=== PATIENT | female | born 1970 | race Caucasian/White ===

== ENCOUNTER 2020-07-14 16:56 | Emergency (ER) | payer OTHER ==
[~2020-07-14] VITALS: Ht 152.4 cm; Wt 83.9 kg
[~2020-07-14 16:56] MED LIST: ATENOLOL50 MG; CIPRO500 MG PO; COLACE100 MG PO; FLAGYL500MG PO; INTESTINEX1 CA1 PO; Neurontin PO; PRILOSEC OTC20 MG PO; SYNTHROID50 MCG; SYNTHROID50 MCG PO; TENORMIN50 M1 PO; Tenormin 50MG TAB PO; ULTRACET PO
[2020-07-14] MEDS ORDERED: NEURONTIN300 MG (17:06)
[2020-07-14] MEDS ORDERED: TOPROL XL25 M1 (17:06)
[2020-07-14] MEDS ORDERED: SINGULAIR10 MG (17:07)
[2020-07-14] MEDS ORDERED: DICLOFENAC POTA50 MG (17:07)
[2020-07-14] MEDS ORDERED: ACTOS15 MG (17:07)
== END 2020-07-14 20:56 | disposition home or self-care (01) ==
LOC: ER 16:56
DX: M25.461 Effusion, right knee (principal); M17.11 Unilateral primary osteoarthritis, right knee; S83.8X1S Sprain of other specified parts of right knee, sequela; X58.XXXS Exposure to other specified factors, sequela

== ENCOUNTER 2020-08-25 05:56 | Day surgery (SDC) | payer OTHER ==
[~2020-08-25 05:56] MED LIST changes: +ACTOS15 MG; +ALENDRONATE SOD35 MG PO; +COZAAR100 MG PO; +DICLOFENAC POTA50 MG; +LEVO-T100 MCG PO; +NEURONTIN300 MG; +SINGULAIR10 MG; +TOPROL XL25 M1
== END 2020-08-25 16:00 | disposition home or self-care (01) ==
LOC: CIR.AMB 05:56
PROVIDERS: ATTEND Orthopaedic Surgery
DX: M23.321 Other meniscus derangements, posterior horn of medial meniscus, right knee (principal); M23.341 Other meniscus derangements, anterior horn of lateral meniscus, right knee; M65.861 Other synovitis and tenosynovitis, right lower leg; M12.261 Villonodular synovitis (pigmented), right knee; Z20.822 Contact with and (suspected) exposure to COVID-19

== ENCOUNTER 2021-07-17 09:21 | Outpatient (CLI) | payer OTHER | END 2021-07-17 09:37 | disposition home or self-care (01) | LOC: RAD 09:21 | PROVIDERS: ATTEND Orthopaedic Surgery | DX: M79.672 Pain in left foot (principal) ==

== ENCOUNTER 2021-07-17 10:42 | Outpatient (CLI) | payer OTHER | END 2021-07-17 10:55 | disposition home or self-care (01) | LOC: LAB 10:42 | PROVIDERS: ATTEND Orthopaedic Surgery | DX: M85.89 Other specified disorders of bone density and structure, multiple sites (principal); E56.1 Deficiency of vitamin K; R07.1 Chest pain on breathing; I11.9 Hypertensive heart disease without heart failure; E11.59 Type 2 diabetes mellitus with other circulatory complications; Z12.11 Encounter for screening for malignant neoplasm of colon; E03.8 Other specified hypothyroidism; E83.42 Hypomagnesemia ==

== ENCOUNTER 2021-07-24 10:09 | Outpatient (CLI) | payer OTHER | END 2021-07-24 10:18 | disposition home or self-care (01) | LOC: LAB 10:09 | PROVIDERS: ATTEND Orthopaedic Surgery | DX: R07.1 Chest pain on breathing (principal); I11.9 Hypertensive heart disease without heart failure; Z12.11 Encounter for screening for malignant neoplasm of colon; E03.8 Other specified hypothyroidism; E11.59 Type 2 diabetes mellitus with other circulatory complications ==

== ENCOUNTER → 2021-12-13 | Emergency (ER) | payer OTHER ==
[~2021-12-13] VITALS: Ht 154.9 cm; Wt 84.4 kg
== END | disposition home or self-care (01) ==
LOC: ER 08:36
DX: U07.1 COVID-19 (principal); R53.81 Other malaise; E11.9 Type 2 diabetes mellitus without complications; I10 Essential (primary) hypertension

== ENCOUNTER 2023-05-01 17:19 | Emergency (ER) | payer OTHER ==
[~2023-05-01] VITALS: Ht 154.9 cm; Wt 85.3 kg
[2023-05-01 22:34] LABS: CALCIUM 9.3 mg/dL (8.5-10.1); CREATININE SERUM 0.81 mg/dL (0.55-1.02); GFR 73.68; POTASSIUM 4.79 mEq/L (3.5-5.1); TSH 2.4 uIU/mL (0.358-3.74)
[2023-05-01 23:53] LABS: HEMATOCRIT 35.4 % (36.0-45.00); HEMOGLOBIN 11.7 g/dL (12.0-15.00); MEAN CELL VOLUME 84.4 fL (80.00-100.00); MEAN CORPUSCULAR HEMOGLOBIN 27.9 pg (27.00-32.0); MEAN CORPUSCULAR HGB CONC 33.2 g/dl (32.0-36.0); PLATELET COUNT 263 K/uL (150-450); RED BLOOD COUNT 4.19 M/uL (4.00-6.00); RED CELL DISTRIBUTION WIDTH 14.5 % (11.5-14.5)
== END 2023-05-02 00:26 | disposition home or self-care (01) ==
LOC: ER 17:19
PROVIDERS: General Practice
DX: R00.2 Palpitations (principal); I10 Essential (primary) hypertension